=== PATIENT | female | born 1985 ===

== ENCOUNTER 2020-03-27 10:03 | Emergency (ER) | payer SELFPAY ==
[~2020-03-27] VITALS: Ht 160 cm; Wt 57.7 kg
[2020-03-27 10:48] VITALS: Ht 160 cm; Wt 57.7 kg
[2020-03-27 12:10] LABS: BILIRUBIN NEGATIVE (NEGATIVE); HCG URINE NEGATIVE (NEGATIVE); KETONE NEGATIVE (NEGATIVE); NITRITE NEGATIVE (NEGATIVE); UROBILINOGEN NORMAL mg/dL (< 2)
[2020-03-27 12:26] VITALS: BP 116/79
== END 2020-03-27 12:26 | disposition home or self-care (01) ==
LOC: D.ER 10:03
PROVIDERS: Family Medicine
DX: Z20.2 Contact with and (suspected) exposure to infections with a predominantly sexual mode of transmission (principal); A64 Unspecified sexually transmitted disease; N89.8 Other specified noninflammatory disorders of vagina